=== PATIENT | female | born 1990 | race Caucasian/White ===

== ENCOUNTER 2019-07-28 09:42 | Inpatient (IN) | payer OTHER ==
--- NOTE | 2019-07-28 09:55 | BHS.RME ---
Substance Use & Tx History - Substance Use History Alcohol Substance amount: 3 bottles of wine Frequency of use: Daily Substance route: Oral Date of Last Use: 07/28/19 (9:30AM) - Last Treatment Date of last treatment: none Physical/Psych/Mental Status - Behavior General Behavior: Increased activity (restlessness, agitation) Eye Contact: Normal - Cooperativeness Cooperativeness: Cooperative - Thinking Thought Processes: Tight, Logical, Goal Directed - Physical Health Problems Is patient presently having any pain?: No Does patient presently have any injuries (include location): No Does patient currently have a fever: No Is patient : No CIWA Nausea/Vomitin-No Nausea/No Vomiting Muscle Tremors: 2 Anxiety: 3 Agitation: 2 Paroxysmal Sweats: No Perspiration Orientation: 0-Oriented Tacttile Disturbances: 1-Very Mild Itch/Numbness Auditory Disturbances: 0-None Visual Disturbances: 0-None Headache: 0-None Present CIWA-Ar Total Score: 8
[2019-07-28 10:17] VITALS: BMI 31.8
--- NOTE | 2019-07-28 10:22 | HP ---
CIWA Score Nausea/Vomitin-No Nausea/No Vomiting Muscle Tremors: 2 Anxiety: 3 Agitation: 2 Paroxysmal Sweats: No Perspiration Orientation: 0-Oriented Tacttile Disturbances: 1-Very Mild Itch/Numbness Auditory Disturbances: 0-None Visual Disturbances: 0-None Headache: 0-None Present CIWA-Ar Total Score: 8 - Admission Criteria OASAS Guidelines: Admission for Medically Managed Detox: Requires at least one of the followin. CIWA greater than 12 2. Seizures within the past 24 hours 3. Delirium tremens within the past 24 hours 4. Hallucinations within the past 24 hours 5. Acute intervention needed for co occurring medical disorder 6. Acute intervention needed for co occurring psychiatric disorder 7. Severe withdrawal that cannot be handled at a lower level of care (continued vomiting, continued diarrhea, abnormal vital signs) requiring intravenous medication and/or fluids 8. Admitting History and Physical - Admission Chief Complaint: Ms. Ac presents to [facility] requesting admission to detox. History of Present Illness: Ms. Ac is a 28 yo woman who presents to [facility] requesting detox admission for alcohol use. This is her first time in detox. PMH: fatty liver, Alcoholic hepatitis, HLD PSH/PSYCH: none Soc: lives in [place] Legal: none pending Substance Use History Alcohol Substance amount: 3 bottles of wine Frequency of use: Daily Substance route: Oral Date of Last Use: 07/28/19 (9:30AM) [place] drink age 12 y No seizures, no blackouts. 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 - Last Treatment Date of last treatment: none CIWA 8 due to drinking at 9:30 am (~ 30 mins prior to presentation) History Source: Patient Limitations to Obtaining History: No Limitations Admission [facility] Allergies/Adverse Reactions: Allergies Allergy/AdvReac Type Severity Reaction Status Date / Time No Known Allergies Allergy Verified 07/28/19 10:02 Exam Limitations: No Limitations - Ebola screening Have you traveled outside of the country in the last 21 days: No Have you had contact with anyone from an Ebola affected area: No Have you been sick,other than usual withdrawal symptoms: No - Review of Systems Constitutional: Loss of Appetite, Changes in sleep (sleeps 4 hours) EENT: reports: Blurred Vision (when withdrawing from alcohol) Respiratory: reports: No Symptoms reported Cardiac: reports: No Symptoms Reported GI: reports: Nausea : reports: No Symptoms Reported Musculoskeletal: reports: No Symptoms Reported Integumentary: reports: No Symptoms Reported Neuro: reports: Headache (pressure like sensation, relieved by drinking) Hematology: reports: No Symptoms Reported Psychiatric: reports: Anxious (Buspar, takes intermittently, last dose 2 weeks ago) Patient History - PPD History PPD to be Administered?: Yes - Smoking Cessation Smoking history: Former smoker Have you smoked in the past 12 months: No Initiated information on smoking cessation: No - Substances abused Alcohol Substance route: Oral Frequency: Daily Amount used: 3 bottles of wine Age of first use: 12 Date of last use: 07/28/19 Admission Physical Exam [facility] - Physical General Appearance: Yes: No Apparent Distress, Nourished, Appropriately Dressed HEENTM: Yes: Hearing grossly Normal, Normocephalic, Normal Voice Respiratory: Yes: Lungs Clear, Normal Breath Sounds Neck: Yes: Supple Breast: Yes: Breast Exam Deferred Cardiology: Yes: Regular Rhythm, Regular Rate, S1, S2 Abdominal: Yes: Normal Bowel Sounds, Non Tender, Flat, Soft Back: Yes: Normal Inspection Musculoskeletal: Yes: Within Normal Limits, Gait Steady Extremities: Yes: Normal Inspection Neurological: Yes: Alert, Normal Mood/Affect Integumentary: Yes: Normal Color, Dry, Warm Lymphatic: Yes: Within Normal Limits - Diagnostic (1) Alcohol dependence with withdrawal, uncomplicated Current Visit: Yes Status: Acute (2) Fatty liver Current Visit: No Status: Chronic (3) Alcoholic hepatitis Current Visit: No Status: Chronic (4) HLD (hyperlipidemia) Current Visit: No Status: Chronic Cleared for Admission [facility] - Detox or Rehab [facility] Level of Care: Medically Managed Detox Regimen/Protocol: Librium Breathalyzer - Breathalyzer Breathalyzer: 0.253 Urine Drug Screen - Control Is test valid?: Yes - Results Drug screen NEGATIVE: Yes Inpatient Rehab Admission - Rehab Decision to Admit Inpatient rehab admission?: No
[2019-07-28] MEDS ORDERED: ONDANSETRON *ODT* 4 MG TABLET SL ONE ×2 (10:27→10:36)
[2019-07-28] MEDS ORDERED: ONDANSETRON *ODT* 4 MG TABLET SL PRN (10:36)
[2019-07-28] MEDS ORDERED: IBUPROFEN 400 MG TABLET (FP) PO PRN (10:36)
[2019-07-28] MEDS ORDERED: MAG HYDROX/AL HYDROX/SIMETH 30 ML UNIT-DOSE CUP PO PRN (10:36)
[2019-07-28] MEDS ORDERED: MAGNESIUM CITRATE 300 ML BOTTLE PO PRN (10:36)
[2019-07-28] MEDS ORDERED: METHOCARBAMOL 500 MG TABLET PO PRN (10:36)
[2019-07-28] MEDS ORDERED: BISMUTH SUBSALICYLATE 262 MG/15 ML BTL PO PRN (10:36)
[2019-07-28] MEDS ORDERED: MENTHOL/PHENOL 1 EACH UD MM PRN (10:36)
[2019-07-28] MEDS ORDERED: chlordiazePOXIDE HCL 25 MG CAPSULE PO PRN (10:36)
[2019-07-28] MEDS ORDERED: MAGNESIUM HYDROX 2400MG/30ML ORAL SUSPENSION 30 ML CUP PO PRN (10:36)
[2019-07-28] MEDS ORDERED: ACETAMINOPHEN 325 MG TABLET (FP) PO PRN ×2 (10:36)
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
[2019-07-28] MEDS ORDERED: TUBERCULIN PPD 5 TU/0.1ML VIAL ID ONE (12:05)
[2019-07-28] MEDS: PRENATAL VITAMINS W/ FOLIC ACID TABLET (FP) PO SCH (12:07)
[2019-07-28] MEDS: hydrOXYzine PAMOATE 25 MG CAPSULE (FP) PO SCH ×3 (13:45→22:08)
[2019-07-28 14:07] LABS: HEMATOCRIT 40.8 % (32.4-45.2); HEMOGLOBIN 13.5 GM/dL (10.7-15.3); MCH 33.5 pg (25.7-33.7); MCHC 33.2 g/dl (32.0-36.0); MEAN PLT VOLUME 9.6 fl (7.5-11.1); PLATELET COUNT 194 K/MM3 (134-434); RBC 4.04 M/mm3 (3.60-5.2); RDW 13.2 % (11.6-15.6); WHITE BLOOD COUNT 4.1 K/mm3 (4.0-10.0)
[2019-07-28 14:17] LABS: BILIRUBIN,TOTAL 0.5 mg/dL (0.2-1); BLOOD UREA NITROGEN 11.5 mg/dL (7-18); CALCIUM 9.5 mg/dL (8.5-10.1); CREATININE 0.6 mg/dL (0.55-1.3); POTASSIUM 3.8 mmol/L (3.5-5.1); TOT PROT 8.8 g/dl (6.4-8.2)
--- NOTE | 2019-07-28 15:32 | EKG ---
Test Reason : Blood Pressure : / mmHG Vent. Rate : 085 BPM Atrial Rate : 085 BPM P-R Int : 168 ms QRS Dur : 086 ms QT Int : 384 ms P-R-T Axes : 051 012 029 degrees QTc Int : 456 ms NORMAL SINUS RHYTHM POSSIBLE LEFT ATRIAL ENLARGEMENT BORDERLINE ECG NO PREVIOUS ECGS AVAILABLE Confirmed by Madison Tyson ([id number]) on 07/28/2019 3:31:58 PM Referred By: Confirmed By:Madison Tyson
[2019-07-28] MEDS: chlordiazePOXIDE HCL 25 MG CAPSULE PO SCH ×2 (17:45→22:08)
[2019-07-28] MEDS ORDERED: SUVOREXANT 10 MG TABLET PO PRN (22:00)
[2019-07-28] MEDS: MELATONIN 5 MG TABLETS PO SCH (22:08)
[2019-07-28] MEDS: THIAMINE HCL 100 MG TABLET (FP) PO SCH (22:08)
[2019-07-29] MEDS: hydrOXYzine PAMOATE 25 MG CAPSULE (FP) PO SCH ×5 (06:46→22:04)
[2019-07-29] MEDS: chlordiazePOXIDE HCL 25 MG CAPSULE PO SCH ×4 (06:46→22:04)
[2019-07-29] MEDS: PRENATAL VITAMINS W/ FOLIC ACID TABLET (FP) PO SCH (10:30)
[2019-07-29] MEDS: hydrOXYzine PAMOATE 50 MG CAPSULE (FP) PO PRN ×2 (10:31→14:10)
--- NOTE | 2019-07-29 12:48 | PN ---
S CIWA - CIWA Score Nausea/Vomitin-No Nausea/No Vomiting Muscle Tremors: 4-Moderate,w/Arms Extend Anxiety: 4-Mod. Anxious/Guarded Agitation: 3 Paroxysmal Sweats: No Perspiration Orientation: 0-Oriented Tacttile Disturbances: 0-None Auditory Disturbances: 0-None Visual Disturbances: 0-None Headache: 0-None Present CIWA-Ar Total Score: 11 BHS Progress Note (SOAP) Subjective: anxiety,tremors, intermittent sleep,epigastric discomfort. Denies nausea or vomiting. Reports hx GERD and Prilosec OTC use years in the past. Reports not currently on ppi and takes TUMS sometimes. Objective: 07/29/19 12:47 Vital Signs - 24 hr 07/28/19 07/28/19 07/28/19 13:41 14:51 16:53 Temperature 97.6 F 98.0 F Pulse Rate 102 H 103 H Respiratory 16 18 Rate Blood Pressure 133/83 129/76 O2 Sat by Pulse 97 95 Oximetry (%) 07/28/19 07/29/19 20:25 06:39 Temperature 97.5 F L 98.0 F Pulse Rate 83 76 Respiratory 18 18 Rate Blood Pressure 120/73 133/90 O2 Sat by Pulse 96 97 Oximetry (%) Laboratory Tests 07/28/19 07/28/19 07/28/19 10:20 11:00 11:00 WBC 4.1 RBC 4.04 Hgb 13.5 Hct 40.8 MCV 101.0 H MCH 33.5 MCHC 33.2 RDW 13.2 Plt Count 194 MPV 9.6 Sodium 138 Potassium 3.8 Chloride 104 Carbon Dioxide 23 Anion Gap 11 BUN 11.5 Creatinine 0.6 Est GFR (CKD-EPI)AfAm 141.76 Est GFR (CKD-EPI)NonAf 122.31 Random Glucose 100 Calcium 9.5 Total Bilirubin 0.5 AST 378 H ALT 226 H Alkaline Phosphatase 107 Total Protein 8.8 H Albumin 5.0 POC Urine HCG, Qual Negative Syphilis Serology COVID-19 (PACO) 07/28/19 07/28/19 11:00 11:00 WBC RBC Hgb Hct MCV MCH MCHC RDW Plt Count MPV Sodium Potassium Chloride Carbon Dioxide Anion Gap BUN Creatinine Est GFR (CKD-EPI)AfAm Est GFR (CKD-EPI)NonAf Random Glucose Calcium Total Bilirubin AST ALT Alkaline Phosphatase Total Protein Albumin POC Urine HCG, Qual Syphilis Serology Non-reactive COVID-19 (PACO) Not detected labs noted elevated liver enzymes Assessment: 07/29/19 12:55 withdrawal sx hx fatty liver hx alcoholic herpatitis hx HLD Plan: cont detox [place] prn increase po fluids transfer to [address] [place] [id number] today to continue detox.
[2019-07-29] MEDS: MELATONIN 5 MG TABLETS PO SCH (22:04)
[2019-07-29] MEDS: THIAMINE HCL 100 MG TABLET (FP) PO SCH (22:05)
[2019-07-30] MEDS: chlordiazePOXIDE HCL 25 MG CAPSULE PO SCH ×2 (05:51→10:04)
[2019-07-30] MEDS: hydrOXYzine PAMOATE 25 MG CAPSULE (FP) PO SCH ×2 (05:51→10:04)
[2019-07-30] MEDS: PRENATAL VITAMINS W/ FOLIC ACID TABLET (FP) PO SCH (10:04)
[2019-07-30 10:27] LABS: PH,URINE 7.5 (5.0-8.0); URINE APPEARANCE TURBID; URINE BILIRUBIN NEGATIVE (NEGATIVE); URINE COLOR YELLOW; URINE GLUCOSE (UA) NEGATIVE (NEGATIVE); URINE KETONE NEGATIVE (NEGATIVE); URINE LEUK ESTERASE NEGATIVE (NEGATIVE); URINE NITRITE NEGATIVE (NEGATIVE); URINE PROTEIN NEGATIVE (NEGATIVE)
--- NOTE | 2019-07-30 12:21 | PN ---
[facility] CIWA - CIWA Score Nausea/Vomitin-Mild Nausea/No Vomiting Muscle Tremors: 1-None Visible, but [place] Anxiety: 1-Mildly Anxious Agitation: 1-Slight > Activity Paroxysmal Sweats: 1-Minimal Palms Moist Orientation: 0-Oriented Tacttile Disturbances: 1-Very Mild Itch/Numbness Auditory Disturbances: 0-None Visual Disturbances: 2-Mild Sensitivity Headache: 1-Very Mild CIWA-Ar Total Score: 9 BHS Progress Note (SOAP) Subjective: 28 years old female admitted on 07/28/19 for alcohol withdrawal sx management treating with librium detox regiment feeling ok today Vital Signs - 24 hr 07/29/19 07/29/19 07/29/19 12:56 17:15 20:30 Temperature 97.5 F L 97.3 F L 97.8 F Pulse Rate 91 H 102 H 107 H Respiratory 18 18 18 Rate Blood Pressure 132/71 136/90 140/89 O2 Sat by Pulse 97 95 Oximetry (%) 07/30/19 07/30/19 07/30/19 00:43 03:35 06:12 Temperature 97.1 F L Pulse Rate 104 H Respiratory 18 16 18 Rate Blood Pressure 127/86 O2 Sat by Pulse 96 Oximetry (%) 07/30/19 08:33 Temperature 97.7 F Pulse Rate 86 Respiratory 18 Rate Blood Pressure 126/78 O2 Sat by Pulse Oximetry (%) anxiety increase vistaril 50mg po q6h prn Laboratory Tests Objective: 07/30/19 12:31 Laboratory Tests 07/28/19 07/28/19 07/28/19 10:20 11:00 11:00 WBC 4.1 RBC 4.04 Hgb 13.5 Hct 40.8 MCV 101.0 H MCH 33.5 MCHC 33.2 RDW 13.2 Plt Count 194 MPV 9.6 Sodium 138 Potassium 3.8 Chloride 104 Carbon Dioxide 23 Anion Gap 11 BUN 11.5 Creatinine 0.6 Est GFR (CKD-EPI)AfAm 141.76 Est GFR (CKD-EPI)NonAf 122.31 Random Glucose 100 Calcium 9.5 Total Bilirubin 0.5 AST 378 H ALT 226 H Alkaline Phosphatase 107 Total Protein 8.8 H Albumin 5.0 Urine Color Urine Appearance Urine pH Ur Specific [place] Urine Protein Urine Glucose (UA) Urine Ketones Urine Blood Urine Nitrite Urine Bilirubin Urine Urobilinogen Ur Leukocyte Esterase POC Urine HCG, Qual Negative Syphilis Serology COVID-19 (PACO) 07/28/19 07/28/19 07/30/19 11:00 11:00 07:50 WBC RBC Hgb Hct MCV MCH MCHC RDW Plt Count MPV Sodium Potassium Chloride Carbon Dioxide Anion Gap BUN Creatinine Est GFR (CKD-EPI)AfAm Est GFR (CKD-EPI)NonAf Random Glucose Calcium Total Bilirubin AST ALT Alkaline Phosphatase Total Protein Albumin Urine Color Yellow Urine Appearance Turbid Urine pH 7.5 Ur Specific [place] 1.016 Urine Protein Negative Urine Glucose (UA) Negative Urine Ketones Negative Urine Blood Negative Urine Nitrite Negative Urine Bilirubin Negative Urine Urobilinogen 1.0 Ur Leukocyte Esterase Negative POC Urine HCG, Qual Syphilis Serology Non-reactive COVID-19 (PACO) Not detected ast elevation discontinue librium begin ativan Assessment: 07/30/19 12:39 alcohol withdrawal Plan: ativan regiment
[2019-07-30] MEDS ORDERED: LORazepam 1 MG TABLET PO PRN (12:34)
[2019-07-30] MEDS: hydrOXYzine PAMOATE 50 MG CAPSULE (FP) PO PRN ×2 (17:53→23:12)
[2019-07-30] MEDS: LORazepam 2 MG TABLET PO SCH ×2 (17:53→22:18)
[2019-07-30] MEDS: MELATONIN 5 MG TABLETS PO SCH (22:17)
[2019-07-30] MEDS: THIAMINE HCL 100 MG TABLET (FP) PO SCH (22:18)
[2019-07-31] MEDS ORDERED: chlordiazePOXIDE HCL 10 MG CAPSULE PO PRN
[2019-07-31] MEDS ORDERED: chlordiazePOXIDE HCL 10 MG CAPSULE PO SCH (05:00)
[2019-07-31] MEDS: LORazepam 1 MG TABLET PO SCH ×4 (05:35→22:08)
[2019-07-31] MEDS: PRENATAL VITAMINS W/ FOLIC ACID TABLET (FP) PO SCH (10:05)
--- NOTE | 2019-07-31 11:55 | PN ---
S CIWA - CIWA Score Nausea/Vomitin-Mild Nausea/No Vomiting Muscle Tremors: 1-None Visible, but [place] Anxiety: 1-Mildly Anxious Agitation: 1-Slight > Activity Paroxysmal Sweats: 1-Minimal Palms Moist Orientation: 0-Oriented Tacttile Disturbances: 0-None Auditory Disturbances: 0-None Visual Disturbances: 1-Very Mild Sensitivity Headache: 0-None Present CIWA-Ar Total Score: 6 BHS Progress Note (SOAP) Subjective: 28 years old female admitted on 07/28/19 for alcohol withdrawal sx management terating with ativan detox regiment feeling better today resting in bed discussing aftercare with staff Objective: 07/31/19 11:56 Vital Signs - 24 hr 07/30/19 07/30/19 07/30/19 12:35 16:58 20:54 Temperature 97.2 F L 97.3 F L 97.1 F L Pulse Rate 95 H 101 H 100 H Respiratory 18 18 18 Rate Blood Pressure 125/86 123/84 136/92 O2 Sat by Pulse 98 99 Oximetry (%) 07/31/19 07/31/19 07/31/19 00:32 06:15 06:22 Temperature 97.3 F L Pulse Rate 91 H Respiratory 18 18 18 Rate Blood Pressure 124/86 O2 Sat by Pulse 100 Oximetry (%) 07/31/19 08:53 Temperature 97.1 F L Pulse Rate 95 H Respiratory 18 Rate Blood Pressure 117/78 O2 Sat by Pulse Oximetry (%) Laboratory Tests 07/28/19 07/28/19 07/28/19 10:20 11:00 11:00 WBC 4.1 RBC 4.04 Hgb 13.5 Hct 40.8 MCV 101.0 H MCH 33.5 MCHC 33.2 RDW 13.2 Plt Count 194 MPV 9.6 Sodium 138 Potassium 3.8 Chloride 104 Carbon Dioxide 23 Anion Gap 11 BUN 11.5 Creatinine 0.6 Est GFR (CKD-EPI)AfAm 141.76 Est GFR (CKD-EPI)NonAf 122.31 Random Glucose 100 Calcium 9.5 Total Bilirubin 0.5 AST 378 H ALT 226 H Alkaline Phosphatase 107 Total Protein 8.8 H Albumin 5.0 Urine Color Urine Appearance Urine pH Ur Specific [place] Urine Protein Urine Glucose (UA) Urine Ketones Urine Blood Urine Nitrite Urine Bilirubin Urine Urobilinogen Ur Leukocyte Esterase POC Urine HCG, Qual Negative Syphilis Serology COVID-19 (PACO) 07/28/19 07/28/19 07/30/19 11:00 11:00 07:50 WBC RBC Hgb Hct MCV MCH MCHC RDW Plt Count MPV Sodium Potassium Chloride Carbon Dioxide Anion Gap BUN Creatinine Est GFR (CKD-EPI)AfAm Est GFR (CKD-EPI)NonAf Random Glucose Calcium Total Bilirubin AST ALT Alkaline Phosphatase Total Protein Albumin Urine Color Yellow Urine Appearance Turbid Urine pH 7.5 Ur Specific [place] 1.016 Urine Protein Negative Urine Glucose (UA) Negative Urine Ketones Negative Urine Blood Negative Urine Nitrite Negative Urine Bilirubin Negative Urine Urobilinogen 1.0 Ur Leukocyte Esterase Negative POC Urine HCG, Qual Syphilis Serology Non-reactive COVID-19 (PACO) Not detected 07/31/19 11:57 ast elevation continue ativan regiment repeat ast on 08/01/19 Assessment: 07/31/19 11:58 alcohol withdrawal Plan: ativan regiment
[2019-07-31] MEDS: THIAMINE HCL 100 MG TABLET (FP) PO SCH (22:08)
[2019-07-31] MEDS: MELATONIN 5 MG TABLETS PO SCH (22:08)
[2019-08-01] MEDS ORDERED: LORazepam 0.5 MG TABLET PO PRN
[2019-08-01] MEDS ORDERED: chlordiazePOXIDE HCL 10 MG CAPSULE PO SCH (05:00)
[2019-08-01] MEDS: LORazepam 0.5 MG TABLET PO SCH ×4 (05:59→22:03)
[2019-08-01] MEDS: hydrOXYzine PAMOATE 50 MG CAPSULE (FP) PO PRN ×2 (07:02→22:04)
--- NOTE | 2019-08-01 09:27 | PN ---
S CIWA - CIWA Score Nausea/Vomitin-No Nausea/No Vomiting Muscle Tremors: None Anxiety: 1-Mildly Anxious Agitation: 0-Normal Activity Paroxysmal Sweats: No Perspiration Orientation: 2-Disoriented Date<2 days Tacttile Disturbances: 0-None Auditory Disturbances: 0-None Visual Disturbances: 0-None Headache: 0-None Present CIWA-Ar Total Score: 3 BHS Progress Note (SOAP) Subjective: Poor appetite, anxious asking for Buspar to be raised to a higher dose at discharge Objective: Ms. Ac is a 28 yo woman who presents to [facility] requesting detox admission for alcohol use. This is her first time in detox. PMH: fatty liver, Alcoholic hepatitis, HLD PSH/PSYCH: none Soc: lives in [place] Legal: none pending Substances used: alcohol PE Gnl; WDWN, in no distress MS: awake, alert, nl language Motor; moves well Coord: nl Assessment: 08/01/19 09:29 1. Alcohol use disorder 2. Anxiety Plan: 1. Ativan taper 2. discharge in am outpatient [facility] 3. Will ask Dr. Telles to adress pts desire for Buspar
[2019-08-01] MEDS: PRENATAL VITAMINS W/ FOLIC ACID TABLET (FP) PO SCH (10:24)
--- NOTE | 2019-08-01 10:55 | DS ---
[facility] Detox Discharge Summary Admission Date: 07/28/19 Discharge Date: 08/01/19 - History Present History: Alcohol Dependence Pertinent Past History: Ms. Ac is a 28 yo woman who presented to [facility] requesting detox admission for alcohol use. This is her first time in detox. PMH: fatty liver, Alcoholic hepatitis, HLD PSH/PSYCH: none Soc: lives in [place] Legal: none pending Substances used: alcohol PE Gnl; WDWN, in no distress MS: awake, alert, nl language Motor; moves well Coord: nl - Physical Exam Results Vital Signs: Vital Signs Temperature 97.5 F L 08/01/19 08:37 Pulse Rate 105 H 08/01/19 08:37 Respiratory Rate 18 08/01/19 08:37 Blood Pressure 115/80 08/01/19 08:37 O2 Sat by Pulse Oximetry (%) 97 08/01/19 05:42 - Treatment Hospital Course: Detox Protocol Followed, Detoxed Safely, Responded well, Discharged Condition Good, Rehab Referral Accepted Patient has Accepted a Rehab Referral to: [facility] - Medication Discharge Medications: Ambulatory Orders Buspirone HCl [Buspar -] 5 mg PO PRN PRN 07/28/19 - Diagnosis (1) Alcohol dependence with withdrawal, uncomplicated Current Visit: Yes Status: Acute (2) Fatty liver Current Visit: No Status: Chronic (3) Alcoholic hepatitis Current Visit: No Status: Chronic (4) HLD (hyperlipidemia) Current Visit: No Status: Chronic - AMA Did Patient Leave Against Medical Advice: No
[2019-08-01 17:05] VITALS: TEMP 97.1
[2019-08-01] MEDS: MELATONIN 5 MG TABLETS PO SCH (22:02)
[2019-08-01] MEDS: THIAMINE HCL 100 MG TABLET (FP) PO SCH (22:02)
[2019-08-02] MEDS ORDERED: chlordiazePOXIDE HCL 10 MG CAPSULE PO ONE (05:00)
[2019-08-02] MEDS ORDERED: LORazepam 0.5 MG TABLET PO ONE (05:00)
[2019-08-02 06:17] VITALS: BP 122/78; PULSE 82
--- NOTE | 2019-08-02 10:40 | DS ---
[facility] Detox Discharge Summary Admission Date: 07/28/19 Discharge Date: 08/02/19 - History Present History: Alcohol Dependence Additional Comments: Pt is medically cleared and discharged today. Pt completed the detox protocol. Pt is encouraged to follow-up with an outpatient CD program and also to follow- up with his pmd which he verbalized understanding. Pt is alert and oriented x3 and in no acute respiratory distress. Pertinent Past History: h/o alcohol use disorder. - Physical Exam Results Vital Signs: Vital Signs Temperature 97.1 F L 08/02/19 06:16 Pulse Rate 82 08/02/19 06:16 Respiratory Rate 18 08/02/19 06:16 Blood Pressure 122/78 08/02/19 06:16 O2 Sat by Pulse Oximetry (%) 97 08/02/19 06:16 Vital Signs 08/02/19 08/02/19 03:30 06:16 Temperature 97.1 F L Pulse Rate 82 Respiratory 18 18 Rate Blood Pressure 122/78 O2 Sat by Pulse 97 Oximetry (%) Laboratory Last Values WBC 4.1 K/mm3 (4.0-10.0) 07/28/19 11:00 RBC 4.04 M/mm3 (3.60-5.2) 07/28/19 11:00 Hgb 13.5 GM/dL (10.7-15.3) 07/28/19 11:00 Hct 40.8 % (32.4-45.2) 07/28/19 11:00 MCV 101.0 fl (80-96) H 07/28/19 11:00 MCH 33.5 pg (25.7-33.7) 07/28/19 11:00 MCHC 33.2 g/dl (32.0-36.0) 07/28/19 11:00 RDW 13.2 % (11.6-15.6) 07/28/19 11:00 Plt Count 194 K/MM3 (134-434) 07/28/19 11:00 MPV 9.6 fl (7.5-11.1) 07/28/19 11:00 Sodium 138 mmol/L (136-145) 07/28/19 11:00 Potassium 3.8 mmol/L (3.5-5.1) 07/28/19 11:00 Chloride 104 mmol/L (98-107) 07/28/19 11:00 Carbon Dioxide 23 mmol/L (21-32) 07/28/19 11:00 Anion Gap 11 MMOL/L (8-16) 07/28/19 11:00 BUN 11.5 mg/dL (7-18) 07/28/19 11:00 Creatinine 0.6 mg/dL (0.55-1.3) 07/28/19 11:00 Est GFR (CKD-EPI)AfAm 141.76 07/28/19 11:00 Est GFR (CKD-EPI)NonAf 122.31 07/28/19 11:00 Random Glucose 100 mg/dL (74-106) 07/28/19 11:00 Calcium 9.5 mg/dL (8.5-10.1) 07/28/19 11:00 Total Bilirubin 0.5 mg/dL (0.2-1) 07/28/19 11:00 AST 81 U/L (15-37) H 08/01/19 07:10 ALT 226 U/L (13-61) H 07/28/19 11:00 Alkaline Phosphatase 107 U/L (45-117) 07/28/19 11:00 Total Protein 8.8 g/dl (6.4-8.2) H 07/28/19 11:00 Albumin 5.0 g/dl (3.4-5.0) 07/28/19 11:00 Urine Color Yellow 07/30/19 07:50 Urine Appearance Turbid 07/30/19 07:50 Urine pH 7.5 (5.0-8.0) 07/30/19 07:50 Ur Specific [place] 1.016 (1.010-1.035) 07/30/19 07:50 Urine Protein Negative (NEGATIVE) 07/30/19 07:50 Urine Glucose (UA) Negative (NEGATIVE) 07/30/19 07:50 Urine Ketones Negative (NEGATIVE) 07/30/19 07:50 Urine Blood Negative (NEGATIVE) 07/30/19 07:50 Urine Nitrite Negative (NEGATIVE) 07/30/19 07:50 Urine Bilirubin Negative (NEGATIVE) 07/30/19 07:50 Urine Urobilinogen 1.0 mg/dL (0.2-1.0) 07/30/19 07:50 Ur Leukocyte Esterase Negative (NEGATIVE) 07/30/19 07:50 POC Urine HCG, Qual Negative 07/28/19 10:20 Syphilis Serology Non-reactive (NONREACTIVE) 07/28/19 11:00 COVID-19 (PACO) Not detected (Not Detected) 07/28/19 11:00 Labs noted. Pertinent Admission Physical Exam Findings: withdrawal symptoms. - Treatment Hospital Course: Detox Protocol Followed, Detoxed Safely, Responded well, Discharged Condition Good - Medication Discharge Medications: Ambulatory Orders Buspirone HCl [Buspar -] 5 mg PO PRN PRN 07/28/19 - Diagnosis (1) Alcohol use disorder Current Visit: Yes Status: Chronic (2) Alcohol dependence with withdrawal, uncomplicated Current Visit: Yes Status: Acute (3) Alcoholic hepatitis Current Visit: No Status: Chronic (4) Fatty liver Current Visit: No Status: Chronic (5) HLD (hyperlipidemia) Current Visit: No Status: Chronic - AMA Did Patient Leave Against Medical Advice: No
== END 2019-08-02 08:44 | disposition home or self-care (01) | DRG 775 ==
LOC: YASAS 09:42 → Y5N DETOX 10:26 → Y3N 07-29 12:37
PROVIDERS: ADMIT Allergy & Immunology; ATTEND Allergy & Immunology
PROC: HZ2ZZZZ Detoxification Services for Substance Abuse Treatment (ICD-10-PCS; principal; 2019-07-28)
DX: F10.230 Alcohol dependence with withdrawal, uncomplicated (principal); F10.24 Alcohol dependence with alcohol-induced mood disorder; F10.280 Alcohol dependence with alcohol-induced anxiety disorder; F10.282 Alcohol dependence with alcohol-induced sleep disorder; F41.9 Anxiety disorder, unspecified; K70.10 Alcoholic hepatitis without ascites; K76.0 Fatty (change of) liver, not elsewhere classified; R74.0 Nonspecific elevation of levels of transaminase and lactic acid dehydrogenase [LDH]; R94.5 Abnormal results of liver function studies; Z87.19 Personal history of other diseases of the digestive system; Z87.891 Personal history of nicotine dependence
CPT/HCPCS: 36415; 80053; 81003; 81025; 84450; 85027; 86780; 93005; 93010; Q0162; U0003